=== PATIENT | male | born 1950 | race Caucasian/White ===

== ENCOUNTER → 2018-02-12 | Outpatient (CLI) | payer MEDICARE, OTHER ==
[~2018-02-12] MED LIST: OXYC-302 PO
== END | disposition home or self-care (01) ==
LOC: CFH 16:32
PROVIDERS: ATTEND Nurse Practitioner
DX: M47.897 Other spondylosis, lumbosacral region (principal); M48.07 Spinal stenosis, lumbosacral region; M54.16 Radiculopathy, lumbar region
CPT/HCPCS: 72110; 72148